=== PATIENT | female | born 1990 | race Two or more races ===

== ENCOUNTER 2017-05-27 01:32 | Emergency (ER) | payer BC, OTHER ==
[~2017-05-27] VITALS: Ht 167.6 cm; Wt 75.6 kg
[2017-05-27] MEDS ORDERED: KETOROLAC 30 MG/1 ML IVPush ONE (02:00)
[2017-05-27] MEDS ORDERED: DIPHENHYDRAMINE 50 MG/ML, 1ML IVPush ONE (02:00)
[2017-05-27] MEDS ORDERED: PROCHLORPERAZINE 5 MG/ML, 2ML IVPush ONE (02:00)
[2017-05-27] MEDS ORDERED: SODIUM CHLORIDE 0.9% 1,000ML IVBOLUS ONE (02:00)
[2017-05-27] MEDS ORDERED: KETOROLAC 30 MG/1 ML ONE (02:11)
[2017-05-27] MEDS ORDERED: PROCHLORPERAZINE 5 MG/ML, 2ML ONE (02:11)
[2017-05-27] MEDS ORDERED: DIPHENHYDRAMINE 50 MG/ML, 1ML ONE (02:11)
[2017-05-27 03:57] VITALS: BP 112/75
== END 2017-05-27 04:06 | disposition home or self-care (01) ==
LOC: ED 03:52
DX: G43.019 Migraine without aura, intractable, without status migrainosus (principal)
CPT/HCPCS: 96361; 96374; 96375; 99284; J0780; J1200; J1885; J7030